=== PATIENT | male | born 1965 ===

== ENCOUNTER → 2020-09-11 16:10 | Outpatient (CLI) | payer OTHER, SELFPAY ==
[2020-09-11] MEDS: COVID-19 VACC #1, MRNA(MOD) 100 MCG/0.5 ML VIAL IM (16:21)
== END ==
PROVIDERS: Visit Provider Internal Medicine
DX: Z23 Encounter for immunization (principal)
CPT/HCPCS: 0011A; 91301

== ENCOUNTER → 2020-10-09 15:53 | Outpatient (CLI) | payer OTHER, SELFPAY ==
[2020-10-09] MEDS: COVID-19 VACC #2, MRNA(MOD) 100 MCG/0.5 ML VIAL IM (16:05)
== END ==
PROVIDERS: Visit Provider Internal Medicine
DX: Z23 Encounter for immunization (principal)
CPT/HCPCS: 0012A; 91301

== ENCOUNTER 2022-09-18 21:21 | Emergency (ER) | payer OTHER, SELFPAY ==
[2022-09-18 21:34] VITALS: BP 180/93; PULSE 70; RESP 18; TEMP 35.8; O2SAT 98; BMI 32.3
--- NOTE | 2022-09-18 21:54 | DI.RAD.S_ITS ---
PROCEDURE: XR SHOULDER LT MIN 2V INDICATIONS: Patient slipped on steps, hitting left shoulder TECHNIQUE: 2 views of the shoulder were acquired. COMPARISON: None. FINDINGS: Bones: No fractures or dislocations. No suspicious bony lesions. Visualized ribs appear intact. Soft tissues: No suspicious soft tissue calcifications. IMPRESSION: 1. No fracture or dislocation. Dictated by: Stephane Domínguez M.D. on 09/18/2022 at 23:42 Approved by: Stephane Domínguez M.D. on 09/18/2022 at 23:43
[2022-09-18 22:11] VITALS: BP 171/80; PULSE 75; RESP 20; O2SAT 97
--- NOTE | 2022-09-18 23:09 | ED_ITS ---
HPI - Extremity Injury (Upper) General Chief Complaint: Extremity Injury, Upper Stated Complaint: GLF, L shoulder pain, says jammed shoulder Time Seen by Provider: 09/18/22 21:33 Source: patient Mode of arrival: Ambulatory History of Present Illness HPI narrative: 57-year-old male nonsmoker with noncontributory medical history presents with his in the chief complaint of a fall with associated left shoulder pain and injury. He was coming down some stairs and fell with all of his weight from 1 or 2 stairs off of the ground level floor and landed directly on his shoulder. He denies any head neck or back pain. He now has severe left shoulder pain which is much worse with palpation or range of motion. He denies any elbow, wrist injury and has no numbness, tingling or weakness. He denies any prodromal symptoms contributing to his falls such as dizziness, weakness or lightheadedness. Related Data Previous Rx's Medication Instructions Recorded hydrocodone 5 mg-acetaminophen 325 1 tab PO Q4-6H PRN pain #20 tabs 09/18/22 mg tablet Allergies Allergy/AdvReac Type Severity Reaction Status Date / Time No Known Drug Allergies Allergy Unverified 02/28/22 14:38 Review of Systems Review of Systems Narrative: GENERAL: Denies chills, fatigue, malaise, fever, sweats. HEENT: Denies sinus pain, ear pain, sore throat, difficulty swallowing, dizziness. RESPIRATORY: Denies dyspnea, cough, wheezing, hemoptysis, sputum. CARDIOVASCULAR: Denies chest pain, palpitations, orthopnea, edema, GASTROINTESTINAL: Denies nausea, vomiting, abdominal pain, diarrhea, constipation, melena. : Denies dysuria, frequency, incontinence, hematuria, urinary retention. MUSCULOSKELETAL: See HPI SKIN: Denies rash, skin lesions, or other NEUROLOGIC: Denies weakness, headache, numbness, change in speech, confusion, seizures, incoordination. PSYCHIATRIC: No concerning psychosocial issues. 12 point review of systems is negative except for those stated above Patient History Social History Smoking Status: Never smoker Smoking Status: Never smoker Substance Use Type: does not use Exam Narrative Exam Narrative: GENERAL: [57] year old patient appears stated age. Well-developed patient, in mild distress. HEAD: Atraumatic. Normocephalic. EYES: Pupils equal round and reactive. Extraocular motions intact. No scleral icterus. No injection or drainage. ENT: Nose without bleeding, purulent drainage. Throat without erythema, tonsillar hypertrophy or exudate. Airway patent. NECK: Trachea midline. Non tender CARDIOVASCULAR: Regular rate and rhythm without murmurs, gallops, or rubs. RESPIRATORY: Clear to auscultation. Breath sounds equal bilaterally. No wheezes, rales, or rhonchi. GASTROINTESTINAL: Abdomen soft, non-tender, nondistended. EXTREMITIES: Left shoulder exquisitely tender particularly along its anterior aspect, there is no obvious external manifestation of injury, no deformity this is closed, isolated and neurovascularly intact. There is significantly decreased range of motion secondary to pain and patient nor I perceive a mechanical obstruction.. BACK: Nontender without deformity or crepitance. No flank tenderness. NEURO: AOx3. SKIN: No rash or erythema of visible areas Initial Vital Signs Initial Vital Signs: Vital Signs Temperature 96.4 F L 09/18/22 21:34 Pulse Rate 70 09/18/22 21:34 Respiratory Rate 18 09/18/22 21:34 Blood Pressure 180/93 H 09/18/22 21:34 Pulse Oximetry 98 09/18/22 21:34 Oxygen Delivery Method Room Air 09/18/22 21:34 Procedures Orthopedic Splinting/Casting Injury #1: Side: left Upper Extremity Injury Location: shoulder Upper Extremity Immobilizer: sling/shoulder immobilizer Post splinting neuro exam: intact Post splinting vascular exam: intact Placed by: Nursing Course Orders Ordered: ED Orders 09/18/22 21:54 XR shoulder LT min 2V Stat Discontinued Medications Hydrocodone Bitart/Acetaminophen (Hydrocodone/Acet 5/325 Prepack) 1 bottle MISC SEEINSTR ONE Stop: 09/18/22 23:29 Last Admin: 09/18/22 23:41 Dose: 1 bottle Documented By: GC Vital Signs Vital signs: Vital Signs - 8 hr 09/18/22 21:34 09/18/22 22:11 09/19/22 00:14 Temperature 96.4 F L 97.7 F Pulse Rate 70 75 80 Respiratory Rate 18 20 18 Blood Pressure 180/93 H 171/80 H 164/80 H Pulse Oximetry 98 97 97 Oxygen Delivery Method Room Air Room Air Room Air MDM - Extremity Injury (Upper) MDM Narrative Medical decision making narrative: [57] year old patient presents with fall with left shoulder injury Multiple etiologies for patient's symptoms considered including, but not limited to: [Fracture, dislocation, sprain, strain, contusion versus other] Prior Charts reviewed in our EMR Primary Historian: patient Imaging reviewed: No fracture or dislocation Patient with fall directly on shoulder presents with injury, decreased range of motion, no obvious deformity, neurovascularly intact. X-ray without evidence of fracture or dislocation. Patient placed in splint, given pain medications and encouraged to follow-up with Orthopedics, he is given contact information for our group, however he has already established with another group in [place] previously and it sounds like he expects to follow-up with them. Findings and discharge diagnosis discussed with patient/family followed by verbalization of understanding Return precautions discussed with patient/family whom verbalize understanding of diagnosis and plan Discharge Plan Departure Patient Disposition: Home Clinical Impression: Injury of left shoulder Qualifiers: Encounter type: initial encounter Qualified Code(s): S49.92XA - Unspecified injury of left shoulder and upper arm, initial encounter Instructions: DI for Shoulder Sprain Activity Restrictions/Additional Instructions: *You have been diagnosed with [left shoulder injury, possible rotator cuff involvement. As we discussed the x-rays are reassuring and demonstrate no sign of fracture or dislocation] *What to do: *Please continue to take your regular medications as directed. [x ] New medication prescriptions sent to your pharmacy: [ [facility]] [ ] New medication written as a paper prescription [x] Tylenol and occasional Motrin for pain *Please follow up with [ Do] of [facility] in 2-3 days, call for an appointment. Let them know you were seen in the Emergency Department and that we ask that you be seen in follow up. We will electronically transmit a record of today's note if your PCP is in our system *Return to Emergency Department if you should have any new, worsening or concerning symptoms, such as [worsening pain, significant swelling, cold extremities, numbness, tingling, weakness or other bothersome symptoms Prescriptions: New hydrocodone-acetaminophen 5-325 mg tablet 1 tab PO Q4-6H PRN (Reason: pain) Qty: 20 0RF Referrals: Miscellaneous,MD Sung [Primary Care Provider] - Juan Lei MD [Physician] - Stand Alone Forms: Patient Portal/API
[2022-09-18] MEDS: HYDROCODONE/ACET 5/325 PREPACK 1 BOTTLE MISC (23:41)
[2022-09-19 00:14] VITALS: BP 164/80; PULSE 80; RESP 18; TEMP 36.5; O2SAT 97
== END 2022-09-19 00:10 | disposition home or self-care (01) ==
PROVIDERS: Emergency Provider Emergency Medicine
DX: S49.92XA Unspecified injury of left shoulder and upper arm, initial encounter (principal); W10.9XXA Fall (on) (from) unspecified stairs and steps, initial encounter
CPT/HCPCS: 73030; 99283